=== PATIENT | male | born 1935 | race Two or more races ===

== ENCOUNTER 2022-12-25 12:49 | Outpatient (AMB) | payer MEDICARE, SELFPAY ==
--- NOTE | 2022-12-25 13:12 | MHC.OFFVIS ---
Intake Vital Signs 12/25/22 13:15 Height 5 ft 9 in Weight 172 lb 4 oz BMI 25.4 BP 122/60 Blood Pressure Location Rt brachial Position Sitting Pulse 56 Pulse Source Pulse Oximeter Pulse Oximetry (%) 99 Oxygen Delivery Method Room Air Intake Visit Reasons: 08/22/22 LETTER SENT [employer]/facial pain Intake Note: Pt presents today to establish care for dizziness , states hes been in and out of urgent cares and hospitals c no dx for over a year. Allergies No Known Allergies Allergy (Verified 12/25/22 13:18) HPI HPI Comments History of Present Illness Details 87y/o male comes for evaluation of dizziness and facial pain. The dizziness started about 1 year ago and has worsened . He describes the dizziness as not feeling right in space. when he stands up from a sitting position worsens, he also has episodes when he wakes up in the middle of the night. . Head movement does not make it worse.Sitting down and relaxing helps. He denies any falls and the dizziness can last the whole. He denies any headaches. He was seen by ENT and was diagnosis He also reports collin ear pain - pressure in his ears , episodic and can last the whole day.He describes the collin pain as electric shock like pain - bilaterally.He denies double vision, numbness, nausea, vomiting.It can last a few minutes to the whole day He was treated with antibiotics by ENT with no improvement meclizine does not help his dizziness. [facility] Medical History (Updated 12/25/22 @ 14:02 by Yuly Johnson MD) Arthritis Depression Diabetes Facial pain HTN (hypertension) Sensorineural hearing loss Tinnitus Vertigo Surgical History (Updated 12/25/22 @ 13:25 by Quin Oliveira) History of knee replacement procedure of left knee Family History (Updated 12/25/22 @ 13:25 by Quin Oliveira) Father Heart disease Mother Heart disease Social History Alcohol intake: never Patient Tobacco Use Status: Never used Tobacco Review of Systems Eyes Reports blurry vision ENT Reports hearing loss and Reports neck pain Musc Reports neck pain Psych Reports depression Physical Exam Vital Signs: Last Vital Signs Pulse 56 12/25/22 13:15 BP 122/60 12/25/22 13:15 Pulse Ox 99 12/25/22 13:15 Oxygen Delivery Method Room Air 12/25/22 13:15 BMI result Body Mass Index 25.4 Const General: cooperative, comfortable and no acute distress Nutritional Appearance: average body habitus Orientation/consciousness: patient oriented x3 Eyes Pupils: Equal, round and reactive pupils present Neuro Other: dizziness on horizontal head movement General: patient oriented x3, tone normal, moves all extremities and no focal motor deficits Cranial nerves: Yes Facial sensation intact/muscles of mastication intact, Yes Equal, round and reactive pupils present, Yes Bilaterally intact EOM present, Yes Nystagmus not present, Yes Normal facial strength present, Yes Midline tongue present and Yes Symmetric palate elevation present Cognition (Neuro): normal cognition Gait exam (Neuro): Antalgic gait present Motor exam (neuro): 5/5 motor strength present throughout and Normal motor muscle tone present throughout Deep tendon reflexes (DTR's): Right triceps reflex intensity grade: 1+, Left triceps reflex intensity grade: 1+, Rt Biceps (C5, C6): 1+, Left biceps reflex intensity grade: 1+, Right brachioradialis reflex intensity grade: 1+, Left brachioradialis reflex intensity grade: 1+, Right patellar reflex intensity grade: 1+ and Left patellar reflex intensity grade: 1+ Coordination: [id number] test normal Assessment & Plan Assessment & Plan (1) Vertigo: Comment: likely BPV Code(s): R42 - Dizziness and giddiness (2) Facial pain: Comment: collin jaw pain - likely related to his bruxism Code(s): R51.9 - Headache, unspecified Plan Vestibular therapy for chronic vertigo Suggested icing his TMJ o help with facial pain . will consider a muscle relaxant if he does not respond. Orders: Orders PT Evaluation and Treatment Today R42 - Dizziness and giddiness Coding Level of Care Code New Pt Level 4 (08827) Diagnoses Vertigo R42 Facial pain R51.9
[2022-12-25 13:15] VITALS: BP 122/60; PULSE 56; O2SAT 99; BMI 25.4
== END 2022-12-25 13:58 | disposition home or self-care (01) ==
PROVIDERS: Visit Provider Psychiatry & Neurology Neurology
DX: R42 Dizziness and giddiness (principal); R51.9 Headache, unspecified
CPT/HCPCS: 99204

== ENCOUNTER → 2022-12-25 12:49 | Outpatient (BNVA) | payer MEDICARE, SELFPAY | PROVIDERS: Visit Provider Psychiatry & Neurology Neurology | DX: R42 Dizziness and giddiness (principal); R51.9 Headache, unspecified | CPT/HCPCS: 99202 ==